=== PATIENT | female | born 1970 | race Two or more races ===

== ENCOUNTER 2016-09-06 18:07 | Emergency (ER) | payer SELFPAY ==
[~2016-09-06] VITALS: Ht 152.4 cm; Wt 60.8 kg
[~2016-09-06 18:07] MED LIST: ACET-704 PO; IBUP-1060 PO
[2016-09-06] MEDS ORDERED: IPRATRPIUM/ALBUTEROL 0.5/2.5MG 3 ML NEBU. NEB ONE (19:00)
[2016-09-06] MEDS ORDERED: HYDROcodone/APAP 5/325MG 1 TAB TABLET PO ONE (19:00)
[2016-09-06] MEDS ORDERED: HYDR-2758 PO (19:04)
[2016-09-06] MEDS ORDERED: PROAIR HFA8.5 GM INH (19:04)
--- NOTE | 2016-09-06 19:04 | PHYS DOC ---
Past Medical History Past Medical History: Other Additional Past Medical Histor: herpes Past Surgical History: No Surgical History Alcohol Use: None Drug Use: None Adult General Chief Complaint Chief Complaint: BACK PAIN - NO INJURY HPI HPI 45-year-old female presenting to the emergency department with back pain. She also reports shortness of breath. This started approximately yesterday morning. It is intermittent. The pain is moderate to mild nonradiating and without alleviating factors. She also reports having cough that is associated with her shortness of breath and back pain. She denies chest pain abdominal pain nausea vomiting diaphoresis. Review of systems is negative for fevers chills or productive sputum nausea or vomiting. All other review of systems is negative unless otherwise noted in history of present illness. ED course: 45-year-old female presenting to the emergency department with shortness of breath and midthoracic to lower cervical back pain that is mostly paraspinal in nature and a cough. Triage vital signs: Afebrile with a normal heart rate. Saturating on a percent on room air. Pertinent physical exam findings showed minimal wheezing bilaterally without any crackles. Otherwise unremarkable. Labs obtained along with an EKG and a chest x-ray. Nebulizer given in the emergency department. On reexamination the patient was feeling much better and subsequently discharged home to follow up with her primary care physician. The patient was then discharged home in stable condition to follow up with their primary care physician over the next 2-3 days. They were to return if their symptoms worsened or if they were concerned for any reason. Face -to-face discharge instructions and return precautions were given. Patient's questions were answered to their satisfaction. Patient is comfortable plan. Review of Systems Review of Systems SEE ABOVE. Current Medications Current Medications Current Medications Medications (Trade) Dose Ordered Sig/Jess Start Time Stop Time Status Last Admin Dose Admin Acetaminophen/ Hydrocodone Bitart (Lortab 5/325) 2 tab 1X ONCE 09/06/16 19:00 09/06/16 19:01 DC 09/06/16 19:11 2 TAB Albuterol/ Ipratropium (Duoneb) 3 ml 1X ONCE 09/06/16 19:00 09/06/16 19:01 DC 09/06/16 19:17 3 ML Allergies Allergies Allergies Coded Allergies Type Severity Reaction Last Updated Verified No Known Drug Allergies 09/06/16 No Physical Exam Physical Exam SEE ABOVE Constitutional: Well developed, well nourished, no acute distress, non-toxic appearance. [] HENT: Normocephalic, atraumatic, bilateral external ears normal, oropharynx moist, no oral exudates, nose normal. [] Eyes: PERRLA, EOMI, conjunctiva normal, no discharge. [] Neck: Normal range of motion, no tenderness, supple, no stridor. [] Cardiovascular:Heart rate regular rhythm, no murmur [] Lungs & Thorax: See above Abdomen: Bowel sounds normal, soft, no tenderness, no masses, no pulsatile masses. [] Skin: Warm, dry, no erythema, no rash. [] Back: No tenderness, no CVA tenderness. [] Extremities: No tenderness, no cyanosis, no clubbing, ROM intact, no edema. [] Neurologic: Alert and oriented X 3, normal motor function, normal sensory function, no focal deficits noted. [] Psychologic: Affect normal, judgement normal, mood normal. [] Current Patient Data Vital Signs Vital Signs Date Time Temp Pulse Resp B/P (MAP) Pulse Ox O2 Delivery O2 Flow Rate FiO2 09/06/16 19:58 72 26 107/54 (71) 100 Room Air 09/06/16 18:20 98.6 98.6 Lab Values Laboratory Tests Test 09/06/16 18:49 09/06/16 18:50 White Blood Count 9.3 x10^3/uL (4.0-11.0) Red Blood Count 4.34 x10^6/uL (3.50-5.40) Hemoglobin 10.3 g/dL (12.0-15.5) L Hematocrit 32.5 % (36.0-47.0) L Mean Corpuscular Volume 75 fL (79-100) L Mean Corpuscular Hemoglobin 24 pg (25-35) L Mean Corpuscular Hemoglobin Concent 32 g/dL (31-37) Red Cell Distribution Width 16.1 % (11.5-14.5) H Platelet Count 252 x10^3/uL (140-400) Neutrophils (%) (Auto) 67 % (31-73) Lymphocytes (%) (Auto) 20 % (24-48) L Monocytes (%) (Auto) 11 % (0-9) H Eosinophils (%) (Auto) 1 % (0-3) Basophils (%) (Auto) 1 % (0-3) Neutrophils # (Auto) 6.3 x10^3uL (1.8-7.7) Lymphocytes # (Auto) 1.9 x10^3/uL (1.0-4.8) Monocytes # (Auto) 1.0 x10^3/uL (0.0-1.1) Eosinophils # (Auto) 0.1 x10^3/uL (0.0-0.7) Basophils # (Auto) 0.1 x10^3/uL (0.0-0.2) Sodium Level 137 mmol/L (136-145) Potassium Level 4.0 mmol/L (3.5-5.1) Chloride Level 103 mmol/L (98-107) Carbon Dioxide Level 26 mmol/L (21-32) Anion Gap 8 (6-14) Blood Urea Nitrogen 9 mg/dL (7-20) Creatinine 0.7 mg/dL (0.6-1.0) Estimated GFR (Cockcroft-Gault) 90.5 Glucose Level 102 mg/dL (70-99) H Calcium Level 8.7 mg/dL (8.5-10.1) Total Bilirubin 0.2 mg/dL (0.2-1.0) Direct Bilirubin 0.1 mg/dL (0.0-0.2) Aspartate Amino Transferase (AST) 21 U/L (15-37) Alanine Aminotransferase (ALT) 21 U/L (14-59) Alkaline Phosphatase 93 U/L (46-116) Troponin I Quantitative < 0.017 ng/mL (0.000-0.055) KV-Rgp-T-Type Natriuretic Peptide 45 pg/mL (0-124) Total Protein 7.7 g/dL (6.4-8.2) Albumin 3.5 g/dL (3.4-5.0) Lipase 241 U/L (73-393) POC Urine HCG, Qualitative Hcg negative (Negative) Laboratory Tests 09/06/16 18:49 Laboratory Tests 09/06/16 18:49 EKG EKG EKG shows sinus rhythm with regular rate. Normal intervals. Normal axis. ST segments are congruent. Not suggestive of ACS. Reviewed by myself.[] Radiology/Procedures Radiology/Procedures Chest x-ray reviewed by myself shows no obvious infiltrate or pneumothorax present. No obvious acute cardiopulmonary process present.[] Course & Med Decision Making Course & Med Decision Making Pertinent Labs and Imaging studies reviewed. (See chart for details) [] Dragon Disclaimer Dragon Disclaimer This electronic medical record was generated, in whole or in part, using a voice recognition dictation system. Departure Departure Impression: Primary Impression: Shortness of breath Additional Impressions: Back pain Cough Disposition: 01 HOME, SELF-CARE Condition: STABLE Referrals: SEJAL CARPENTER MD Patient Instructions: Back Pain, Adult, Shortness of Breath, [id number] Additional Instructions: Thank you for allowing us to participate in your care today. Followup with your primary care physician in 3 days if your symptoms do not improve. Call your Primary Doctor tomorrow and inform them of your visit today. If you do not have a primary care provider you can ask for a list of our primary care providers. Return to the emergency department you have any new or concerning findings. This should be evaluated by the primary care physician and any necessary consulting services for continued management within a few days after discharge. Return to emergency room if you have any new or concerning symptoms including but not limited to fever, chills, nausea, vomiting, intractable pain, any new rashes, chest pain, shortness of air, uncontrolled bleeding, difficulty breathing, and/or vision loss. You may have been prescribed medication that can change in your level of thinking and ability to operate machinery. These medications include hydrocodone and Ativan. Also, Benadryl has been known to do this as well. Be sure to check with your pharmacist and ask if the medications you've prescribed can affect your level of consciousness. I recommend not operating heavy machinery or driving while on medication such as these. Scripts Albuterol Sulfate (PROAIR HFA INHALER) 8.5 Gm Hfa.aer.ad 1 PUFF INH PRN Q6HRS Y for SHORTNESS OF BREATH, #1 INHALER 0 Refills Prov: KELL MARION MD 09/06/16 Hydrocodone Bit/Acetaminophen (HYDROCODONE-APAP 5-325 ) 1 Each Tablet 1 TAB PO PRN Q6HRS Y for PAIN, #15 TAB 0 Refills Be careful as this medication may cause you to be drowsy or tired. Do not drive on this medication. Prov: KELL MARION MD 09/06/16 Problem Qualifiers KELL MARION MD Sep 06, 2016 19:04
[2016-09-06 19:11] LABS: BASO # 0.1 x10^3/uL (0.0-0.2); BASO % 1 % (0-3); EOS % 1 % (0-3); HEMATOCRIT 32.5 % (36.0-47.0); HEMOGLOBIN 10.3 g/dL (12.0-15.5); LYMPH # 1.9 x10^3/uL (1.0-4.8); LYMPH % 20 % (24-48); MEAN CORPUSCULAR HEMOGLOBIN 24 pg (25-35); MEAN CORPUSCULAR HGB CONC 32 g/dL (31-37); MEAN CORPUSCULAR VOLUME 75 fL (79-100); MONO % 11 % (0-9); NEUT % 67 % (31-73); PLATELET COUNT 252 x10^3/uL (140-400); RED BLOOD COUNT 4.34 x10^6/uL (3.50-5.40); RED CELL DISTRIBUTION WIDTH 16.1 % (11.5-14.5); WHITE BLOOD COUNT 9.3 x10^3/uL (4.0-11.0)
[2016-09-06 19:30] LABS: CALCIUM 8.7 mg/dL (8.5-10.1); CREATININE 0.7 mg/dL (0.6-1.0); GFR 90.5
[2016-09-06 19:35] LABS: ALBUMIN 3.5 g/dL (3.4-5.0); DIRECT BILIRUBIN 0.1 mg/dL (0.0-0.2); TOTAL BILIRUBIN 0.2 mg/dL (0.2-1.0); TOTAL PROTEIN 7.7 g/dL (6.4-8.2)
[2016-09-06 21:28] VITALS: BP 101/56
--- NOTE | 2016-09-07 08:24 | RAD ---
Portable AP upright view CXR: Clinical indications: Cough and shortness of breath for one day. Comparison: None available. Findings: No acute lung infiltrate or pleural effusion or pulmonary edema or lung mass or pneumothorax is seen. The heart size, pulmonary vasculature, mediastinum and both stacia are unremarkable. Impression: No acute radiographic abnormality is seen.
--- NOTE | 2016-09-07 09:20 | EKG ---
[facility] [address] [place] [address] Test Date: 2016-09-06 Test Time: 18:50:25 Pat Name: NAVJOT PIKE Department: Room: Gender: F [employer] Driver: : 1970 Requested By: KELL MARION Order Number: [id number] Reading MD: Tuan Alanis Measurements Intervals Gaffney Rate: 78 P: 31 MT: 152 QRS: 34 QRSD: 92 T: 33 QT: 338 QTc: 389 Interpretive Statements SINUS RHYTHM R-S TRANSITION ZONE IN V LEADS DISPLACED TO THE RIGHT OTHERWISE NORMAL ECG Electronically Signed On 09-07-2016 15:09:45 CDT by Tuan Alanis
[2016-09-07 09:44] LABS: NEG OBC SER NEG; POS OBC SER POS
== END 2016-09-06 21:57 | disposition home or self-care (01) ==
LOC: ER 18:07
DX: M54.6 Pain in thoracic spine (principal); R06.02 Shortness of breath; R05 Cough
CPT/HCPCS: 36415; 71010; 80048; 80076; 81025; 83690; 83880; 84484; 84703; 85027; 93005; 94640; 99285; J7620

== ENCOUNTER 2016-09-09 15:48 | Emergency (ER) | payer SELFPAY ==
[~2016-09-09] VITALS: Ht 152.4 cm; Wt 58.5 kg
[~2016-09-09 15:48] MED LIST changes: +HYDR-2758 PO; +PROAIR HFA8.5 GM INH
[2016-09-09] MEDS ORDERED: DEXAMETHASONE 4 MG TABLET PO STA (16:18)
[2016-09-09 16:30] VITALS: BP 111/54
[2016-09-09] MEDS ORDERED: diphenhydrAMINE HCL 25 MG CAPSULE PO ONE (16:30)
[2016-09-09] MEDS ORDERED: KETOROLAC TROMETHAMINE 60 MG/2 ML INJ. IM ONE (16:30)
[2016-09-09] MEDS ORDERED: ONDA4TAB10 PO (16:37)
--- NOTE | 2016-09-09 16:37 | PHYS DOC ---
Past Medical History Past Medical History: Other Additional Past Medical Histor: herpes Past Surgical History: No Surgical History Alcohol Use: None Drug Use: None Adult General Chief Complaint Chief Complaint: SHORTNESS OF BREATH HPI HPI Patient is a 45 year old female presenting to the emergency department for evaluation of 2 main complaints including itching and nausea with 2 episodes of vomiting earlier this morning. Last week and prescribed hydrocodone for some right-sided chest and back pain. She says that this is getting better however whenever she takes medication afterward she gets itchy and nauseated and she vomited twice. She says that she is not nauseated currently but she does have itching diffusely throughout her body. She says that she has an intermittent rash but does not have one currently. Anus and shortness of breath is mostly resolved and she still has some achiness and she says it hurt more after she cleaned a house at work and twisted her torso. perc score = 0. Review of Systems Review of Systems Respiratory: Denies cough or shortness of breath [] Cardiovascular: No additional information not addressed in HPI [] GI: Denies abdominal pain. + nausea, vomiting. No bloody stools or diarrhea [] : Denies dysuria or hematuria [] Musculoskeletal: Denies back pain or joint pain [] Integument: + rash Neurologic: Denies headache, focal weakness or sensory changes [] Current Medications Current Medications Current Medications Medications (Trade) Dose Ordered Sig/Jess Start Time Stop Time Status Last Admin Dose Admin Dexamethasone (Decadron) 6 mg ONCE STAT 09/09/16 16:18 09/09/16 16:21 DC 09/09/16 16:40 6 MG Diphenhydramine HCl (Benadryl) 50 mg 1X ONCE 09/09/16 16:30 09/09/16 16:31 DC 09/09/16 16:40 50 MG Ketorolac Tromethamine (Toradol Im) 60 mg 1X ONCE 09/09/16 16:30 09/09/16 16:31 DC 09/09/16 16:41 60 MG Allergies Allergies Allergies Coded Allergies Type Severity Reaction Last Updated Verified No Known Drug Allergies 09/06/16 No Physical Exam Physical Exam Constitutional: Well developed, well nourished, no acute distress, non-toxic appearance. [] Cardiovascular:Heart rate regular rhythm, no murmur [] Lungs & Thorax: Bilateral breath sounds clear to auscultation. Tenderness to palpation of right lateral posterior ribs in addition to right anterior lower ribs. Abdomen: Bowel sounds normal, soft, no tenderness, no masses, no pulsatile masses. [] Skin: Warm, dry, no erythema, no rash. [] Back: No tenderness, no CVA tenderness. [] Extremities: No tenderness, no cyanosis, no clubbing, ROM intact, no edema. [] Neurologic: Alert and oriented X 3, normal motor function, normal sensory function, no focal deficits noted. [] Current Patient Data Vital Signs Vital Signs Date Time Temp Pulse Resp B/P (MAP) Pulse Ox O2 Delivery O2 Flow Rate FiO2 09/09/16 16:30 62 111/54 (73) 97 Room Air 09/09/16 16:00 97.8 16 97.8 Lab Values Laboratory Tests Test 09/09/16 15:07 POC Urine HCG, Qualitative Hcg negative (Negative) EKG EKG [] Radiology/Procedures Radiology/Procedures [] Course & Med Decision Making Course & Med Decision Making Patient is likely reacting to the hydrocodone so told her to stop it and focus on taking NSAIDs that she is not taking any currently. Patient aware and agreeable with plan for discharge and verbalized understanding of the need for short-term follow-up and strict ER return precautions discussed and clear worsening pain shortness of breath or other general concerns. Dragon Disclaimer Dragon Disclaimer This electronic medical record was generated, in whole or in part, using a voice recognition dictation system. Departure Departure Impression: Primary Impression: Generalized pruritus Additional Impression: Medication reaction Disposition: 01 HOME, SELF-CARE Condition: GOOD Referrals: NO PCP (PCP) Patient Instructions: Pruritus Additional Instructions: TAKE 25-50 MG OF BENADRYL EVERY 4-6 HOURS. TAKE 400MG OF IBUPROFEN EVERY 6 HOURS. STOP TAKING THE NORCO. COME BACK TO THE ED WITH ANY NEW OR WORSENING SYMPTOMS. THANK YOU! Scripts Ondansetron (ZOFRAN ODT) 4 Mg Tab.rapdis 4 MG PO BID Y for NAUSEA/VOMITING, #10 TAB Prov: BERE RODARTE DO 09/09/16 Problem Qualifiers BERE RODARTE DO Sep 09, 2016 16:37
== END 2016-09-09 16:54 | disposition home or self-care (01) ==
LOC: ER 15:48
DX: T40.2X5A Adverse effect of other opioids, initial encounter (principal); L29.9 Pruritus, unspecified; Y92.89 Other specified places as the place of occurrence of the external cause
CPT/HCPCS: 81025; 96372; 99283; J1885; J8540; Q0163